=== PATIENT | male | born 1995 | race Caucasian/White ===

== ENCOUNTER 2018-09-14 14:03 | Emergency (ER) | payer OTHER ==
[~2018-09-14] VITALS: Ht 175.3 cm; Wt 61.2 kg
[2018-09-14] MEDS ORDERED: ZYRTEC10 MG PO (14:16)
[2018-09-14 15:15] VITALS: BP 116/77
--- NOTE | 2018-09-14 16:45 | EKG ---
[address] [address] [facility] [place] [address] ELECTROCARDIOGRAM REPORT Name: WONG ALVAREZ Room #: [facility] Leticia#: [id number] ������������������ Admission: 09/14/18 ������������������ Attend Phys: Discharge: 09/14/18 ������������������ Date of : [birth year] Report #: [id number] ����������������������������������������������������������������� [id number] THIS REPORT FOR: //name// [facility] ED Test Date: 2018-09-14 Test Time: 14:34:49 Pat Name: WONG ALVAREZ Department: Room: Gender: M Park Services Specialist: : 1995 Requested By: Ambrosio Schaefer Order Number: [id number] MD: Howard Dominguez Measurements Intervals [place] Rate: 71 P: 31 PA: 126 QRS: 77 QRSD: 86 T: 31 QT: 357 QTc: 388 Interpretive Statements Sinus rhythm ST elev, probable normal early repol pattern No previous ECG available for comparison Electronically Signed On 09-14-2018 16:45:05 CDT by Howard Dominguez [email or web address] ��������������������������������������������� <ELECTRONICALLY SIGNED> ���������������������������������������� By: Howard Dominguez MD ��������������������������������������������� 09/14/18 1645 1434 1434 Howard Dominguez MD /EPI
== END 2018-09-14 15:15 | disposition home or self-care (01) ==
LOC: ER 14:03
DX: R07.89 Other chest pain (principal); R00.2 Palpitations

== ENCOUNTER 2018-09-16 22:47 | Emergency (ER) | payer OTHER ==
[~2018-09-16] VITALS: Ht 175.3 cm; Wt 61.2 kg
[~2018-09-16 22:47] MED LIST: ZYRTEC10 MG PO
[2018-09-16] MEDS ORDERED: PRILOSEC 20 MG20 MG PO (22:55)
[2018-09-17] MEDS ORDERED: COLACE100 MG PO (00:11)
[2018-09-17] MEDS ORDERED: ZOFRAN ODT4 MG PO (00:11)
[2018-09-17 00:19] VITALS: BP 116/63
--- NOTE | 2018-09-17 01:05 | EKG ---
[address] [address] [place] [address] ELECTROCARDIOGRAM REPORT Name: WONG ALVAREZ Room #: [facility] Leticia#: [id number] ������������������ Admission: 09/16/18 ������������������ Attend Phys: Discharge: 09/17/18 ������������������ Date of : [birth year] Report #: [id number] ����������������������������������������������������������������� [id number] THIS REPORT FOR: //name// [facility] ED Test Date: 2018-09-16 Test Time: 23:35:18 Pat Name: WONG ALVAREZ Department: Room: Gender: Account Support Analyst: : 1995 Requested By: Max Thacker Order Number: [id number] MD: Feliz Pratt Measurements Intervals [place] Rate: 83 P: 61 ID: 145 QRS: 75 QRSD: 92 T: 31 QT: 347 QTc: 408 Interpretive Statements Sinus rhythm atiya repol pattern Compared to ECG 09/14/2018 14:34:49 No significant changes Electronically Signed On 09-17-2018 1:05:36 CDT by Feliz Pratt [email or web address] ��������������������������������������������� <ELECTRONICALLY SIGNED> ���������������������������������������� By: Feliz Pratt MD ��������������������������������������������� 09/17/18 0105 2335 2335 Feliz Pratt MD /[email or web address]
== END 2018-09-17 00:19 | disposition home or self-care (01) ==
LOC: ER 22:47
DX: K59.00 Constipation, unspecified (principal); F41.9 Anxiety disorder, unspecified; K21.9 Gastro-esophageal reflux disease without esophagitis; K50.90 Crohn's disease, unspecified, without complications